=== PATIENT | female | born 1985 | race Caucasian/White ===

== ENCOUNTER 2018-09-18 12:23 | Inpatient (IN) | payer OTHER ==
[2018-09-18] MEDS ORDERED: NS w/ Oxytocin 10 units 500 ML IV SCH (12:50)
[2018-09-18] MEDS ORDERED: NS / Oxytocin 40 units/1000ml 1,000 ML IV PRN (12:50)
[2018-09-18] MEDS ORDERED: Penicillin G Potassium 5 MILL.UNITS in Sodium Chloride 0.9% 100 ML IVPB SCH (12:50)
[2018-09-18] MEDS ORDERED: Lidocaine 1% (PF) 30 ML VIAL SC PRN (12:50)
[2018-09-18] MEDS ORDERED: Ondansetron PF 4 MG/2 ML Vial IVP PRN ×2 (12:50→18:41)
[2018-09-18] MEDS ORDERED: Ibuprofen 800 MG TAB PO PRN (12:50)
[2018-09-18] MEDS ORDERED: Acetaminophen 500 MG TAB PO PRN (12:50)
[2018-09-18] MEDS ORDERED: Promethazine HCl 25 MG/ML VIAL IM PRN ×2 (12:50→18:41)
[2018-09-18] MEDS ORDERED: Butorphanol Tartrate 1 MG/ML VIAL SLOW IVP PRN (12:50)
[2018-09-18 13:06] VITALS: BMI 30.7
[2018-09-18] MEDS: Lactated Ringer's 1,000 ML IV SCH ×2 (13:15→18:22)
[2018-09-18 13:35] LABS: Hemoglobin 12.8 g/dL (12.0-16.0); Mean Corpuscular HGB CONC 35.1 g/dL (32.0-36.0); Mean Corpuscular Hemoglobin 32.2 pg (27.0-31.0); Mean Corpuscular Volume 91.7 fL (78.0-98.0); Mean Platelet Volume 6.7 fL (7.4-10.4); Platelet Count 162 thou/uL (130-400); RBC Distribution Width 12.3 % (11.5-14.5); Red Blood Cell (RBC) Count 3.96 mill/uL (4.20-5.40); White Blood Cell (WBC) Count 8.4 thou/uL (4.8-10.8)
[2018-09-18] MEDS: Penicillin G 2.5 MILL.units 2.5 MILL.UNITS in Premix Bag 1 BAG IVPB SCH ×2 (14:02→18:28)
[2018-09-18 14:13] LABS: Syphilis Antibody Nonreactive (Nonreactive); Syphilis Antibody Index 0.03 S/CO (<1.00 Non-Reactive)
[2018-09-18 14:14] LABS: HBSAg Index 0.26 S/CO (0-0.99); Hep B Surf Ag Non-Reactive S/CO (NonReactive)
[2018-09-18] MEDS ORDERED: Fentanyl 4 mcg/Bup 0.1% Cadd 100 ML ONE (17:45)
[2018-09-18] MEDS ORDERED: Naloxone HCl 0.4 mg/ml Vial IVP PRN ×2 (18:41)
[2018-09-18] MEDS ORDERED: Acetaminophen 325 MG TAB PO PRN (18:41)
[2018-09-18] MEDS ORDERED: Lactated Ringer's 500 ML IV PRN (18:41)
[2018-09-18] MEDS ORDERED: ePHEDrine/0.9% NaCl/PF SYRINGE 50 mg/10 ml SLOW IVP PRN (18:41)
[2018-09-18] MEDS ORDERED: diphenhydrAMINE 50 MG/ML VIAL IVP PRN (18:41)
[2018-09-18] MEDS ORDERED: Eucerin (Mineral Oil/Petrolatum,White) 30 gm Jar TOP PRN (18:41)
[2018-09-18] MEDS ORDERED: Fentanyl 4 mcg/Bupivacaine 0.1% Cassette 100 ML EPIDURAL SCH (18:45)
[2018-09-18] MEDS ORDERED: Communication Order-Pharmacy FS SCH (18:45)
[2018-09-18] MEDS ORDERED: Benzocaine/Menthol 20-0.5% 60 ML CAN TOP PRN (22:04)
[2018-09-18] MEDS ORDERED: Preparation H Ointment 28 GM TUBE PR PRN (22:04)
[2018-09-18] MEDS ORDERED: diphenhydrAMINE 25 MG CAP PO PRN (22:04)
[2018-09-18] MEDS ORDERED: Lanolin Ointment 7 GM TUBE TOP PRN (22:04)
[2018-09-18] MEDS ORDERED: traMADol HCl 50 MG TAB PO PRN ×2 (22:04)
[2018-09-18] MEDS ORDERED: Bisacodyl 10 MG SUPP PR PRN (22:04)
[2018-09-18] MEDS ORDERED: Milk Of Magnesia 30 ML UDCUP PO PRN (22:04)
[2018-09-18] MEDS ORDERED: Misoprostol 200 MCG TAB VAG PRN (22:04)
--- NOTE | 2018-09-18 22:06 | PDOC.OPDEL ---
OB Operative/Delivery Note Delivery Dr/Surgeon: Juan Carlos Pre-Delivery Diagnosis: elective induction Procedure/Post Delivery Dx: spontaneous vaginal delivery Weeks gestation: 39 Anesthesia: epidural - Findings A Sex: female - 1 min: 9 - 5 min: 9 - Additional Findings/Plan Placenta delivered: spontaneous Repaired Obstetrical Laceration: 2nd degree
[2018-09-18] MEDS ORDERED: NS / Oxytocin 40 units/1000ml 1,000 ML IV SCH (22:15)
[2018-09-19] MEDS: Ibuprofen 800 MG TAB PO SCH ×3 (02:06→21:27)
--- NOTE | 2018-09-19 08:07 | PDOC.PP ---
Post Progress Note Post Day #: 1 PO intake tolerated: yes Flatus: yes Ambulation: yes Vital Signs (12 hours) Temp Pulse Resp BP 09/19/18 05:12 98.1 F 78 18 111/55 L 09/19/18 02:30 98.4 F 83 17 112/56 L Weight Weight 190 lb - Physical Examination Abdominal: + bowel sounds, lochia, no distention, appropriately TTP Extremities: negative homans (B) Result Diagrams: 09/18/18 13:14 Additional Labs: Post Labs Blood Type O POSITIVE 09/18/18 13:14 Hep Bs Antigen Non-Reactive S/CO (NonReactive) 09/18/18 13:14 - Assessment/Plan Post day 0-1. Doing well. Routine care. D/c in AM.
[2018-09-19] MEDS ORDERED: Adacel (T-DAP) 0.5 ML VIAL IM ONE (09:00)
[2018-09-19] MEDS: Prenatal Vitamin 1 TAB PO SCH (09:33)
[2018-09-19] MEDS: Docusate Calcium (SURFAK) 240 MG CAP PO SCH ×2 (09:33→21:27)
[2018-09-19] MEDS: Ferrous Sulfate 325 MG TAB PO SCH ×2 (09:33→21:26)
[2018-09-19] MEDS ORDERED: Bupivacaine/Epinephrine 0.25% 30 ML VIAL ONE (11:11)
[2018-09-20] MEDS: Ibuprofen 800 MG TAB PO SCH (06:20)
[2018-09-20] MEDS: Ferrous Sulfate 325 MG TAB PO SCH (08:10)
[2018-09-20] MEDS: Docusate Calcium (SURFAK) 240 MG CAP PO SCH (08:13)
[2018-09-20] MEDS: Prenatal Vitamin 1 TAB PO SCH (08:13)
[2018-09-20] MEDS: Penicillin G 2.5 MILL.units 2.5 MILL.UNITS in Premix Bag 1 BAG IVPB SCH (08:16)
[2018-09-20 08:19] VITALS: BP 107/60; TEMP 98.1
--- NOTE | 2018-09-20 08:48 | PDOC.PP ---
Post Progress Note Post Day #: 2 PO intake tolerated: yes Flatus: yes Ambulation: yes Vital Signs (12 hours) Temp Pulse Resp BP Pulse Ox 09/20/18 08:18 98.1 F 79 20 107/60 95 Weight Weight 190 lb - Physical Examination General: NAD Respiratory: non-labored breathing Abdominal: appropriately TTP Fundus firm & at: umb-2 Skin: no rash Neurological: no gross focal deficits Psychiatric: normal affect Result Diagrams: 09/18/18 13:14 Additional Labs: Post Labs Blood Type O POSITIVE 09/18/18 13:14 Hep Bs Antigen Non-Reactive S/CO (NonReactive) 09/18/18 13:14 - Assessment/Plan PPD2 s/p TSVD VSSAF Doing well no issues Rh pos RImm DC home FU 6 w
== END 2018-09-20 11:55 | disposition home or self-care (01) | DRG 807 ==
LOC: L&D 12:23 → 3SW 09-19 00:05 → EDSTATUS 09-23 15:35
PROVIDERS: ADMIT Obstetrics & Gynecology; ATTEND Obstetrics & Gynecology
PROC: 10E0XZZ Delivery of Products of Conception, External Approach (ICD-10-PCS; principal; 2018-09-18)
PROC: 3E033VJ Introduction of Other Hormone into Peripheral Vein, Percutaneous Approach (ICD-10-PCS; 2018-09-18)
PROC: 10907ZC Drainage of Amniotic Fluid, Therapeutic from Products of Conception, Via Natural or Artificial Opening (ICD-10-PCS; 2018-09-18)
DX: O70.1 Second degree perineal laceration during delivery (principal); Z37.0 Single live birth; Z3A.39 39 weeks gestation of pregnancy
CPT/HCPCS: 36415; 51702; 85027; 86780; 86850; 86900; 86901; 87340; J2540; J7050